=== PATIENT | female | born 1970 | race Asian ===

== ENCOUNTER 2019-03-31 13:56 | Emergency (ER) | payer OTHER ==
[2019-03-31 16:07] VITALS: BP 110/83
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
== END 2019-03-31 16:06 | disposition home or self-care (01) ==
LOC: ED 13:56
DX: M54.2 Cervicalgia (principal); V49.10XA Passenger injured in collision with unspecified motor vehicles in nontraffic accident, initial encounter; Y92.9 Unspecified place or not applicable
CPT/HCPCS: 70450; 72125; 72128; 72131; 99282